=== PATIENT | female | born 1980 | race Two or more races ===

== ENCOUNTER 2021-02-14 21:50 | Emergency (ER) | payer BC ==
[~2021-02-14] VITALS: Ht 170.2 cm; Wt 74.8 kg
--- NOTE | 2021-02-14 22:13 | NUR ---
Patient did not want to wait for possible transfer to a facility with [employer] [employer] [facility], The option to transfer was provided a detailed explanation from ER MD. Patient still decided to leave and be driven to [place] by her friend.
--- NOTE | 2021-02-14 22:25 | NUR ---
Patient does not wish to proceed with medical care recommended by Dr. Barclay. Patient given information related to possible complications, up to and including , which could occur as a result of leaving the hospital at this time. Patient verbalizes understanding of risks involved due to leaving against medical advice. Patient has signed AMA form.
== END 2021-02-14 22:27 | disposition left against medical advice (07) ==
LOC: ER 21:53
DX: S06.9X9A Unspecified intracranial injury with loss of consciousness of unspecified duration, initial encounter (principal); W10.9XXA Fall (on) (from) unspecified stairs and steps, initial encounter; Y92.89 Other specified places as the place of occurrence of the external cause; O9A.212 Injury, poisoning and certain other consequences of external causes complicating pregnancy, second trimester; Z3A.23 23 weeks gestation of pregnancy; W10.8XXA Fall (on) (from) other stairs and steps, initial encounter; M54.9 Dorsalgia, unspecified; R10.9 Unspecified abdominal pain
CPT/HCPCS: A4663